=== PATIENT | female | born 1940 | race Caucasian/White ===

== ENCOUNTER → 2016-02-25 | Outpatient (CLI) | payer OTHER, BC ==
[~2016-02-25] MED LIST: ALEVE220 M1 PO; APAP500; BUDESONIDE EC3 MG PO; CALCIUM500 MG PO; COLESTID1 GM PO; DICLOFENAC SODI75 MG PO; FENTANYL PA25 MCG/HR TRANSDERM; FLEXERIL PO; GLUCOSAMINE HC500 MG PO; LEVAQUIN 500 M500 M2 PO; LEVOTHYROXIN0.075 MG; LIDODERM 5%1 PATC1 TRANSDERM; LISINOPRIL-HCT1 EAC2 PO; MULTIVITAMINS1 EAC7 PO; NEURONTIN 300300 M1 PO; NEURONTIN600 MG PO; NORCO 5-325 TA1 EACH PO; PHENAZOPYRIDIN200 M2 PO; PRILOSEC 20 MG20 MG PO; PRINIVIL10 MG PO; ROBAXIN 750 MG750 M1 PO; SIMVASTATIN40 MG PO; TUMS; VOLTAREN GEL 1100 G1 TOP; ZOFRAN ODT4 MG PO; [UNRECOGNIZED DRUG - OTHER] PO
== END ==
LOC: ULTRA 11:33
DX: R92.2 Inconclusive mammogram (principal)

== ENCOUNTER 2016-03-04 15:54 | Emergency (ER) | payer OTHER, BC ==
[~2016-03-04] VITALS: Ht 165.1 cm; Wt 63.5 kg
[~2016-03-04 15:54] MED LIST changes: -FLEXERIL PO
[2016-03-04] MEDS ORDERED: FLEXERIL PO (17:28)
[2016-03-04] MEDS ORDERED: NORCO 5-325 TA1 EACH PO (17:30)
== END 2016-03-04 17:41 | disposition home or self-care (01) ==
LOC: ER 15:54
DX: S16.1XXA Strain of muscle, fascia and tendon at neck level, initial encounter (principal); I10 Essential (primary) hypertension; E03.9 Hypothyroidism, unspecified; E78.5 Hyperlipidemia, unspecified; X58.XXXA Exposure to other specified factors, initial encounter; Y93.89 Activity, other specified; Y92.89 Other specified places as the place of occurrence of the external cause; Y99.8 Other external cause status

== ENCOUNTER → 2017-02-15 | Outpatient (CLI) | payer OTHER, BC ==
[~2017-02-15] MED LIST changes: +FLEXERIL PO
== END ==
LOC: NUC 07:54
DX: M81.0 Age-related osteoporosis without current pathological fracture (principal); M85.88 Other specified disorders of bone density and structure, other site; Z78.0 Asymptomatic menopausal state

== ENCOUNTER → 2017-03-13 | Outpatient (CLI) | payer OTHER, BC | LOC: CAT 02-27 14:40 | DX: K76.0 Fatty (change of) liver, not elsewhere classified (principal) ==

== ENCOUNTER → 2017-03-13 | Outpatient (CLI) | payer OTHER, BC | LOC: RAD 01:19 | DX: Z12.31 Encounter for screening mammogram for malignant neoplasm of breast (principal) ==

== ENCOUNTER → 2018-04-04 | Outpatient (CLI) | payer OTHER, BC | LOC: RAD 01:35 | DX: Z12.31 Encounter for screening mammogram for malignant neoplasm of breast (principal) ==

== ENCOUNTER → 2020-02-11 | Outpatient (CLI) | payer OTHER, BC | LOC: LAB 11:14 | PROVIDERS: ATTEND Family Medicine | DX: U07.1 COVID-19 (principal) ==

== ENCOUNTER → 2020-03-02 | Outpatient (CLI) | payer OTHER, BC | LOC: RAD 12:39 | PROVIDERS: ATTEND Nurse Practitioner | DX: M43.26 Fusion of spine, lumbar region (principal) ==

== ENCOUNTER → 2020-05-24 | Outpatient (CLI) | payer OTHER, BC | LOC: BC 12:16 | PROVIDERS: ATTEND Family Medicine | DX: Z12.31 Encounter for screening mammogram for malignant neoplasm of breast (principal) ==